=== PATIENT | male | born 1965 | race Caucasian/White ===

== ENCOUNTER → 2020-12-11 08:19 | Outpatient (BNVA) | payer BC, SELFPAY | PROVIDERS: PCP Family Medicine; Referring Provider Nurse Practitioner Family; Visit Provider Specialist | DX: G43.701 Chronic migraine without aura, not intractable, with status migrainosus (principal); Z87.891 Personal history of nicotine dependence | CPT/HCPCS: 99204 ==

== ENCOUNTER → 2020-12-25 15:04 | Outpatient (BNVA) | payer BC, SELFPAY | PROVIDERS: PCP Family Medicine; Visit Provider Specialist | DX: M54.81 Occipital neuralgia (principal); G43.711 Chronic migraine without aura, intractable, with status migrainosus; Z87.891 Personal history of nicotine dependence | CPT/HCPCS: 64405; 96372; 99213; J1030; J1885; J2405; J3490 ==

== ENCOUNTER → 2021-02-28 15:43 | Outpatient (BNVA) | payer BC, SELFPAY | PROVIDERS: PCP Family Medicine; Visit Provider Specialist | DX: G43.711 Chronic migraine without aura, intractable, with status migrainosus (principal); M79.7 Fibromyalgia; Z87.891 Personal history of nicotine dependence | CPT/HCPCS: 20552; 64405; 99214; J1030; J3490 ==

== ENCOUNTER → 2021-06-20 15:08 | Outpatient (BNVA) | payer BC, SELFPAY | PROVIDERS: PCP Family Medicine; Visit Provider Specialist | DX: G43.711 Chronic migraine without aura, intractable, with status migrainosus (principal); M79.7 Fibromyalgia; Z87.891 Personal history of nicotine dependence | CPT/HCPCS: 64615; J0585 ==